=== PATIENT | female | born 1950 | race Caucasian/White ===

== ENCOUNTER 2018-08-04 08:04 | Inpatient (IN) | payer BC ==
[2018-08-04] VITALS (9 sets, daily range): BP systolic 90–144; BP diastolic 53–79
[~2018-08-04] VITALS: Ht 162.6 cm; Wt 99.8 kg
[~2018-08-04 08:04] MED LIST: ceFAZolin 1gm IVPB IVPB ONE; celeBREX 200mg Cap **SURGERY PATIENTS ONLY ORAL ONE; oxyCONTIN 20mg tab ORAL ONE
--- NOTE | 2018-08-04 13:38 | Pre-Procedure Note/Attestation ---
Pre-Procedure Note/Attestation Complete Prior to Procedure Planned Procedure: left Procedure Narrative: destin Indications for Procedure Pre-Operative Diagnosis: left hip arthrits Attestation I attest that I discussed the nature of the procedure; its benefits; risks and complications; and alternatives (and the risks and benefits of such alternatives ), prior to the procedure, with the patient (or the patient's legal traffic workforce representative). I attest that, if there was a reasonable possibility of needing a blood transfusion, the patient (or the patient's legal traffic workforce representative) was given the [facility] standardized written summary, pursuant to the [place] Blood Safety Act ([place] Health and Safety Code # 1645, as amended). I attest that I re-evaluated the patient just prior to the surgery and that there has been no change in the patient's H&P, except as documented below: Morales Florentino MD Aug 04, 2018 13:38
--- NOTE | 2018-08-04 13:38 | Operative Note - PDOC ---
Operative Note Operative Note Pre-op Diagnosis: left hip arthrits Procedure: see op report Operative Findings: consistent w/pre-op dx studies Anesthesia: regional Specimen: none Complications: none Condition: stable Estimated Blood Loss: none Implant(s) used?: Yes Morales Florentino MD Aug 04, 2018 13:38
[2018-08-04] MEDS ORDERED: oxyCODONE 5mg IR tab ORAL PRN (13:45)
[2018-08-04] MEDS ORDERED: Morphine Sulfate 2mg/ml Inj(IV/IM USE ONLY) IVP PRN ×2 (13:45)
[2018-08-04] MEDS ORDERED: Milk of Magnesia 30ml Ud ORAL PRN (13:45)
--- NOTE | 2018-08-04 13:46 | Anethesia Preoperative Eval ---
Anesthesia Pre-op PMH/ROS General Date of Evaluation: Aug 04, 2018 Anesthesiologist: Isidro ASA Score: ASA 2 Mallampati Score Class I : Soft palate, uvula, fauces, pillars visible Class II: Soft palate, uvula, fauces visible Class III: Soft palate, base of uvula visible Class IV: Only hard plate visible Mallampati Classification: Class III Surgeon: Chadd Diagnosis: Left hip OA Surgical Procedure: Left THR Anesthesia History: none Family History: no anesthesia problems Allergies: Coded Allergies: No Known Allergies (Unverified , 08/04/18) Patient NPO?: Yes NPO Date: Aug 03, 2018 NPO Time: 2300 Past Medical History Cardiovascular: Reports: HTN; Denies: CAD, ID, valve dz, arrhythmia, other Pulmonary: Denies: asthma, COPD, PARISH, other Gastrointestinal/Genitourinary: Denies: GERD, CRI, ESRD, other Neurologic/Psychiatric: Denies: dementia, CVA, depression/anxiety, TIA, other Endocrine: Denies: DM, hypothyroidism, steroids, other HEENT: Denies: cataract (L), cataract (R), glaucoma, [place] (L), [place] (R), other Hematology/Immune: Denies: anemia, DVT, bleeding disorder, other Musculoskeletal/Integumentary: Denies: OA, RA, DJD, DDD, edema, other Other: obesity PSxH Narrative: Denies Anesthesia Pre-op Phys. Exam Physician Exam Last Vital Signs Date Time Temp Pulse Resp B/P (MAP) Pulse Ox O2 Delivery O2 Flow Rate FiO2 08/04/18 13:33 Room Air 08/04/18 13:27 98.7 95 18 144/79 (100) 99 Constitutional: NAD Cardiovascular: RRR Respiratory: CTA Airway Exam Mallampati Score: Class III MO: full ROM: full Teeth: missing, intact Anesthesia Pre-op A/P Labs see chart Studies Pre-op Studies: EKG - sr Risk Assessment & Plan Assessment: ASA II Plan: GA with SAB Status Change Before Surgery: No Pre-Antibiotics Drug: Emerald Sanchez MD Aug 04, 2018 13:46
[2018-08-04] MEDS ORDERED: AMLODIPINE BESYL5 MG ORAL (13:47)
[2018-08-04] MEDS ORDERED: METOPROLOL TART50 M1 ORAL (13:47)
[2018-08-04] MEDS ORDERED: CATAPRES0.1 MG ORAL (13:47)
[2018-08-04] MEDS ORDERED: DICLOFENAC SODI75 MG ORAL (13:47)
[2018-08-04] MEDS ORDERED: HYZAAR 100-251 EACH ORAL (13:47)
[2018-08-04] MEDS ORDERED: LR 1000ml 1,000 ML IVLG SCH (13:53)
[2018-08-04] MEDS ORDERED: LORazepam Inj 2mg/ml 1ml IV PRN (14:00)
[2018-08-04] MEDS ORDERED: Midazolam 2mg/2ml Inj IVP PRN (14:00)
[2018-08-04] MEDS ORDERED: Metoclopramide 10mg/2ml Inj IVP PRN (14:00)
[2018-08-04] MEDS ORDERED: Hydromorphone 0.5mg/0.5ml inj IVP PRN (14:00)
[2018-08-04] MEDS ORDERED: DiphenhydrAMINE 50mg/ml Inj IVP PRN (14:00)
[2018-08-04] MEDS ORDERED: fentaNYL 100 mcg/2 mL IV PRN (14:00)
[2018-08-04] MEDS ORDERED: Midazolam 2mg/2ml Inj ONE ×2 (14:36→15:00)
[2018-08-04] MEDS ORDERED: Propofol 200mg/20ml IV ONE (14:36)
[2018-08-04] MEDS ORDERED: Lidocaine 1% MPF 10mg/ml 5ml ONE (14:36)
[2018-08-04] MEDS ORDERED: fentaNYL 100 mcg/2 mL IV ONE (14:36)
[2018-08-04] MEDS ORDERED: Ketorolac 30mg Inj ONE ×2 (14:45→15:00)
[2018-08-04] MEDS ORDERED: Morphine Sulfate PF 10 ML ONE ×2 (14:45→14:47)
[2018-08-04] MEDS ORDERED: Kenalog-40 1ml Vial ONE (14:45)
[2018-08-04] MEDS ORDERED: [UNRECOGNIZED DRUG - OTHER] INJ ONE (14:45)
[2018-08-04] MEDS ORDERED: EPINEPHrine 1mg/1ml Amp ONE (14:45)
[2018-08-04] MEDS ORDERED: BUPIVACAINE 0.75% INJ ONE (14:45)
[2018-08-04] MEDS ORDERED: NeoSporin Gu Irrig 1ml Amp IRRIG ONE ×2 (14:46→16:30)
[2018-08-04] MEDS ORDERED: cloNIDine 1000mcg/10ml inj ONE (14:46)
[2018-08-04] MEDS ORDERED: Bupivacaine 0.25% Inj 30ml INJ ONE ×2 (14:46→16:10)
[2018-08-04] MEDS ORDERED: Bacitracin 50000 Units Vial ONE (14:46)
[2018-08-04] MEDS ORDERED: Metoclopramide 10mg/2ml Inj ONE (15:00)
[2018-08-04] MEDS ORDERED: Dexamethasone 4mg/ml vial ONE (15:00)
[2018-08-04] MEDS ORDERED: Tranexamic Acid 1,000 MG in NS 65 ML IV ONE ×2 (15:00→16:15)
[2018-08-04] MEDS ORDERED: LR 1000ml ONE (15:00)
[2018-08-04] MEDS ORDERED: Sterile Water For Irrig 2000ml IRRIG ONE (15:00)
[2018-08-04] MEDS ORDERED: NS Irrig 1000ml ONE (15:00)
[2018-08-04] MEDS ORDERED: NS Irrig 2000ml IRRIG ONE (16:00)
[2018-08-04] MEDS ORDERED: Bacitracin 50000 Units Vial IRRIG ONE (16:00)
[2018-08-04] MEDS ORDERED: Duramorph PF 10mg/10ml amp EPIDUR ONE (16:30)
--- NOTE | 2018-08-04 16:51 | Diagnostic Imaging Report ---
Indication: Pelvic pain, intraoperative Technique: One view of the pelvis in surgery Comparison: none Findings: Single AP view of the pelvis demonstrates a left hip acetabular cup, and a left femoral broach. Cottrell catheter is incidentally noted Impression: Intraoperative imaging, as described
--- NOTE | 2018-08-04 17:13 | Immediate Post-Op Evaluation ---
Immediate Post-Op Evalulation Immediate Post-Op Evalulation Procedure: Left total hip arthroplasty Date of Evaluation: Aug 04, 2018 Time of Evaluation: 17:14 IV Fluids: 1.3L Blood Products: 0 Estimated Blood Loss: 100 Urinary Output: 0 Blood Pressure Systolic: 90 Blood Pressure Diastolic: 55 Pulse Rate: 107 Respiratory Rate: 16 O2 Sat by Pulse Oximetry: 92 Temperature (Fahrenheit): 97.2 Pain Score (1-10): 0 Nausea: No Vomiting: No Complications 0 Patient Status: awake, reacts, patent, none Hydration Status: adequate Drug: Ancef 2g Given Within 1 Hr of Incision: Yes Emerald Alarcon MD Aug 04, 2018 17:13
--- NOTE | 2018-08-04 17:39 | 48 Hour Post Anesthesia Eval ---
Post Anesthesia Evaluation Procedure: Left total hip arthroplasty Date of Evaluation: Aug 04, 2018 Time of Evaluation: 19:43 Blood Pressure Systolic: 143 0: 81 Pulse Rate: 89 Respiratory Rate: 18 Temperature (Fahrenheit): 98.6 O2 Sat by Pulse Oximetry: 99 Airway: patent Nausea: No Vomiting: No Pain Intensity: 1 Hydration Status: adequate Cardiopulmonary Status: Stable Mental Status/LOC: patient returned to baseline Follow-up Care/Observations: 0 Post-Anesthesia Complications: 0 Follow-up care needed: N/A Mendoza Rehman MD Aug 04, 2018 17:39
[2018-08-04] MEDS: Docusate 100mg cap ORAL SCH (18:00)
--- NOTE | 2018-08-04 18:15 | NUR ---
PATIENT FULLY AWAKE AND ALERT DERMATONE LEVEL T L3-L4 STILL NO MOVEMENT OF LOWER EXT AND NOT ABLE TO WIGGLE TOES SENSATION AT BELOW THE KNEE ONLY . DRESSING DRY AND INTACT NO BLEEDING . NO C/O PAIN V/S AND GENERAL CONDITION STABLE
--- NOTE | 2018-08-04 19:40 | NUR ---
Report received from DAWN To. Patient alert, oriented. Bed in low position, locked, side rails up x2. Call light within reach, Denies pain, able to move toes, but still feels numbness. Cottrell patent, draining. IV intact, patent on RH. at bedside. Will continue to monitor.
--- NOTE | 2018-08-04 20:15 | NUR ---
NURSE NOTES: Patient vomited x2, clear fluid, moderate amount. Linen and gown changed, given Zofran IVP. Call light within reach, will continue to monitor.
[2018-08-04] MEDS: D5 1/2NS w/KCl 20mEq 1,000 ML IV SCH (20:29)
[2018-08-04] MEDS: oxyCONTIN 20mg tab ORAL SCH (21:47)
[2018-08-04] MEDS: ceFAZolin 2gm/50ml Premix 50 ML IV SCH (21:56)
--- NOTE | 2018-08-04 22:02 | Operative Note - Dictated ---
DATE OF OPERATION: 08/04/2018 PREOPERATIVE DIAGNOSES: 1. Left hip osteoarthritis. 2. BMI over 40. POSTOPERATIVE DIAGNOSES: 1. Left hip osteoarthritis. 2. BMI over 40. PROCEDURE: Left total hip arthroplasty. COMPLICATIONS: BMI over 40. SURGEON: Morales Florentino M.D. ANESTHESIA: Spinal. INDICATION FOR PROCEDURE: The patient is a pleasant female with progressive left hip arthritis, was indicative of operative fixation with left total hip arthroplasty. Risks, limitations, expectations, and complications of procedure were discussed in detail. All questions were addressed. DESCRIPTION OF PROCEDURE: After informed consent was obtained, the patient was brought to the operative room. The patient was placed under spinal anesthesia. The patient was then carefully placed in the lateral decubitus position. The left hip was prepped and draped in a sterile manner. Time-out was performed. Posterolateral skin incision was then made. Fascia magno was incised. Piriformis and short external rotators were T'd. Hip was dislocated and C2 neck cut was then made. The anterior and inferior acetabular retractors were placed. Sequential reaming up to size 50 was performed. A 52 acetabular component was then placed with a neutral liner. At this point, the proximal femur was reamed to a size 3. A 3-0 head and neck combo was selected. Hip was reduced, flexed to 120 degrees, 90 degrees flexion, internal rotation to 60 degrees. Extension and external rotation was stable. Leg lengths were felt clinically equal. Intraoperative radiographs showed relatively good recreation of the offset leg length. Good fit and fill of the implant. At this point, the trial components removed. Final implants were impacted into place. The capsule was repaired through two drills holes to the greater trochanter. Fascia magno was approximated with #1 Vicryl suture, 2-0 Vicryl suture, 3-0 Monocryl sutures. Steri-Strips and a sterile dressing were applied. The patient was awoken and taken to recovery room with stable vital signs. ESTIMATED BLOOD LOSS: Minimal. COMPLICATIONS: None. SPECIMENS: None. IMPLANTS: Include size 52 acetabular component, size 3 high-offset Accolade stem with a 0 head and neck combo. Morales Florentino M.D. DR: ADAM JOB#: [id number] CC:
[2018-08-05] VITALS: BP 102/63
[2018-08-05 04:00] VITALS: BP 113/66
[2018-08-05] MEDS: ceFAZolin 2gm/50ml Premix 50 ML IV SCH (06:19)
--- NOTE | 2018-08-05 07:22 | NUR ---
HAND-OFF: Report given to DAWN Cruz. Pt in stable condition.
[2018-08-05 08:00] VITALS: BP 117/67
--- NOTE | 2018-08-05 08:00 | NUR ---
NURSE NOTES: Patient is alert and oriented,respirations unlabored,IV fluids infusing as ordered.Left hip dressing clean dry and intact,pedal pulses to bilateral feet intact,able to move toes,no complaint of numbness or tingling.No complaint of pain at this time.Cottrell catheter is on place and draining clear dorcas color urine.Call light within reach,will monitor.
[2018-08-05] MEDS: D5 1/2NS w/KCl 20mEq 1,000 ML IV SCH (08:20)
[2018-08-05] MEDS: Docusate 100mg cap ORAL SCH ×3 (09:38→18:35)
[2018-08-05] MEDS: celeBREX 200mg Cap **SURGERY PATIENTS ONLY ORAL SCH (09:38)
[2018-08-05] MEDS: oxyCONTIN 20mg tab ORAL SCH ×2 (09:39→21:24)
[2018-08-05 12:00] VITALS: BP 110/74
[2018-08-05 16:00] VITALS: BP 111/68
--- NOTE | 2018-08-05 16:38 | NUR ---
PT Note PT yanna completed, treatment initiated. Patient is cooperative but very apprehensive, required constant verbal cues for sequencing. Patient needs PT services to increase her muscle strength to improve her functional mobility and gait. Addendum: 08/05/18 at 1639 by ANGELA LANDIN PT Amended: Links added.
--- NOTE | 2018-08-05 17:21 | NUR ---
PT Note Attempted to see patient for PM treatment but patient c/o fatigue.
--- NOTE | 2018-08-05 19:00 | NUR ---
NURSE NOTES: Dressing to the left hip remains clean dry and intact.Pedal pulse strong.No complaint of pain.
--- NOTE | 2018-08-05 19:00 | NUR ---
NURSE NOTES: Patient resting,tolerating diet and taking in po well with no complaint of nausea,IV saline locked.Patient up with PT today,PT aware that there is a discharge ordered,if cleared by PT,Physical Therapist state that patient needs more Pt and is not clearing the patient today ,boone catheter remains in place due to patient still unsteady.Call was placed to DR Florentino to update on patient progress and patient not discharge today.Call light within reach,No call back from DR Florentino,will endorse to oncoming nurse,patient progress and that call was placed to DR Florentino.
--- NOTE | 2018-08-05 19:20 | NUR ---
HAND-OFF: Report given to KATHERYN SEYMOUR.
--- NOTE | 2018-08-05 19:25 | NUR ---
HAND-OFF: Report given to KATHERYN SEYMOUR.
--- NOTE | 2018-08-05 19:40 | NUR ---
NURSE NOTES: Received pt in bed, AOx4, pain level 2/10 dull ache L hip. Surgical dressing C/D/I. No distress noted. Cottrell to drainage bag with yellow output. at bedside. Bed in lowest position and locked, side rails up x 2, call light within reach. Will continue to monitor.
[2018-08-05 20:00] VITALS: BP 137/74
[2018-08-05] MEDS ORDERED: Tubing IV Secondary IV ONE (20:01)
[2018-08-06 05:44] VITALS: BP 141/79
--- NOTE | 2018-08-06 07:17 | NUR ---
HAND-OFF: Report given to DAWN Barnes. Pt in stable condition.
--- NOTE | 2018-08-06 07:30 | NUR ---
NURSE NOTES: Patient is in bed awake and able to verbalize needs. Stable with no s/s acute distress. Patient denies pain or SOB at this time. Plan of care discussed with patient, patient verbalized understanding. Patient is comfortable in bed with call light within reach. Will continue to monitor.
[2018-08-06 08:00] VITALS: BP 125/76
[2018-08-06] MEDS: celeBREX 200mg Cap **SURGERY PATIENTS ONLY ORAL SCH (09:19)
[2018-08-06] MEDS: oxyCONTIN 20mg tab ORAL SCH (09:19)
[2018-08-06] MEDS: Docusate 100mg cap ORAL SCH ×2 (09:19→12:52)
--- NOTE | 2018-08-06 11:00 | NUR ---
NURSE NOTES: Patient seen by PT. PT cleared patient for discharge. D/C boone catheter as ordered, tolerated well. Will monitor patient for urine output.
[2018-08-06 12:00] VITALS: BP 141/83
[2018-08-06] MEDS ORDERED: NAPROXEN250 MG ORAL (13:18)
[2018-08-06] MEDS ORDERED: PERCOCET 10-321 EACH ORAL (13:18)
[2018-08-06] MEDS ORDERED: NEURONTIN100 MG ORAL (13:34)
[2018-08-06] MEDS ORDERED: ASPIRIN325 MG ORAL (13:35)
--- NOTE | 2018-08-06 14:00 | NUR ---
NURSE NOTES: Patient discharged home as ordered. Stable with no complaints of pain or SOB. Patient was given thorough discharge instructions, verbalized understanding. RN and PT gave patient instructions on how to care for hip and how to transfer and ambulate, patient was able to give return demonstration and verbalized understanding. Skin is clean, dry, and intact. Surgical site is clean,dry, and intact. IV removed without complications. All belongings,DME, and prescriptions sent home with family member. Patient assisted into private vehicle.
--- NOTE | 2018-08-07 09:45 | Diagnostic Imaging Report ---
Indication: Postoperative, status post hip arthroplasty, pain Technique: One view of the pelvis Comparison: One hour earlier Findings: Interim completion of left hip hemiarthroplasty procedure. Good anatomic alignment of the prosthesis. Retained air from the surgical exposure is seen within the soft tissues.. The right hip joint space is preserved. A Cottrell catheter is present within the bladder. Impression: Postoperative left hip. No unusual features
--- NOTE | 2018-08-08 12:01 | Discharge Summary ---
Discharge Summary Hospital Course Date of Admission Aug 04, 2018 at 12:41 Date of Discharge Aug 06, 2018 at 14:00 Admitting Diagnosis left hip osteoarthritis Reason for Hospitalization: elective surgery HPI Charu Cantrell is a 67 year old female who was admitted on Aug 04, 2018 at 12: 41 for Left Hip Osteoarthritis. Patient was admitted for elective surgery Procedures s/p 08/04/[address] Florentino Left total hip arthroplasty Hospital Course s/p surgery postoperative x-ray revealed good anatomic alignment of the prosthesis. course of recovery uneventful initially IV fluids s/p perioperative antibiotics neurovascular status closely monitored, stable left hip incision clean ,dry and intact with dressing pain management addressed, pain controlled hemodynamically stable ambulated with PT use of incentive spirometry was encouraged while in the bed fall precautions maintained; safe for ambulation PT cleared for discharge hip surgery precautions reinforced tolerated diet , IV fluids discontinued antiemetics were on board as needed voided freely after Cottrell catheter discontinued bowel regimen instituted patient was stable for discharge discharge instructions provided follow up with surgeon as outpatient as advised by surgeon FINAL DIAGNOSES Left hip osteoarthritis Morbid obesity Status post left total hip arthroplasty Discharge Medications Continued Medications: Amlodipine Besylate* (Amlodipine Besylate*) 5 Mg Tablet 5 MG ORAL DAILY, TAB (This prescription has been renewed) Aspirin* (Aspirin*) 325 Mg Tablet 325 MG ORAL DAILY for 42 Days, TAB (This prescription has been renewed) Clonidine Hcl* (Catapres*) 0.1 Mg Tablet 0.1 MG ORAL BID, TAB (This prescription has been renewed) Diclofenac Sod* (Voltaren*) 75 Mg Tablet.dr 75 MG ORAL BID, TAB (This prescription has been renewed) Gabapentin* (Neurontin*) 100 Mg Capsule 100 MG ORAL THREE TIMES A DAY, #15 CAP 0 Refills (This prescription has been renewed) Losartan/Hydrochlorothiazide 100-25 Tablet (Hyzaar 100-25 Tablet) 1 Each Tablet 1 TAB ORAL DAILY, TAB (This prescription has been renewed) Metoprolol Tartrate* (Metoprolol Tartrate*) 50 Mg Tablet 50 MG ORAL EVERY 12 HOURS, TAB (This prescription has been renewed) Naproxen* (Naprosyn*) 250 Mg Tablet 500 MG ORAL TWICE A DAY, #60 TAB 0 Refills (This prescription has been renewed) Oxycodone Hcl/Acetaminophen 10-325 Mg Tablet (Percocet 10-325 Mg Tablet*) 1 Each Tablet 1 TAB ORAL Q6H PRN for For Pain, #30 TAB 0 Refills (This prescription has been renewed) Discharge Condition Upon Discharge: stable Discharge Disposition Patient was discharged to Home (01) Discharge Instructions Discharge Instructions Special Instructions I have been assigned to complete a D/C Summary on this account. I was not involved in the patient management Claudia White NP Aug 08, 2018 12:01
--- NOTE | 2018-08-09 15:04 | NUR ---
*-* CASE MANAGEMENT NOTES *-* PATIENT HAS BEEN REFERRED TO: [facility] P:[phone] F:[phone]
== END 2018-08-06 14:00 | disposition home or self-care (01) | DRG 470 ==
LOC: SDSOVERFLO 12:41 → 3E 18:30 → UNDODISIN 08-06 14:20
PROC: 0SRB0JA Replacement of Left Hip Joint with Synthetic Substitute, Uncemented, Open Approach (ICD-10-PCS; principal; 2018-08-04 16:00)
DX: M16.12 Unilateral primary osteoarthritis, left hip (principal); Z68.41 Body mass index [BMI] 40.0-44.9, adult; I10 Essential (primary) hypertension; E66.01 Morbid (severe) obesity due to excess calories
CPT/HCPCS: 36415; 72170; 86850; 86900; 86901; 87081; 94003; 94150; J2250; J2405; J2765